=== PATIENT | male | born 1950 | race Caucasian/White ===

== ENCOUNTER 2024-06-27 06:32 | Emergency (ER) | payer MEDICARE ==
[~2024-06-27] VITALS: Ht 165.1 cm; Wt 62.0 kg
[2024-06-27 06:47] VITALS: O2SAT 100
[2024-06-27 09:33] VITALS: BP 164/61; PULSE 64; RESP 18; TEMP 36.8; O2SAT 99
== END 2024-06-27 09:44 | disposition home or self-care (01) ==
LOC: ER 06:32
DX: R04.0 Epistaxis (principal)
CPT/HCPCS: 99281